=== PATIENT | male | born 1955 | race Caucasian/White ===

== ENCOUNTER 2020-09-21 11:26 | Emergency (ER) | payer MEDICARE, OTHER ==
[2020-09-21] MEDS ORDERED: Sodium Chloride 0.9% 10 ML Syringe FLUSH PRN (12:08)
--- NOTE | 2020-09-21 12:16 | EDM.PDOC ---
ED HPI GENERAL MEDICAL PROBLEM - General Chief Complaint: Neuro Symptoms/Deficits Stated Complaint: LEFT HAND CONTROL Time Seen by Provider: 09/21/20 12:11 Source of Information: Reports: Patient History Limitations: Reports: No Limitations - History of Present Illness INITIAL COMMENTS - FREE TEXT/NARRATIVE: about 1 hour ago pt developed difficulty controlling his left hand and facial numbness and numbness in the arm to the elebow. He had facial numbness on the left. He has facial deviation. He is having difficulty closing his left eye. He is able to wrinkle his forehead upward. Onset: Today, Sudden, Other ( started about 1 hour ago. ) Duration: Minutes: Location: Reports: Face Associated Symptoms: Reports: Other (pt feels like he is having trouble thinking. He has no difficulty walking. ) - Related Data Allergies Allergy/AdvReac Type Severity Reaction Status Date / Time No Known Allergies Allergy Verified 09/21/20 11:37 Home Meds: Home Meds NK [No Known Home Meds] 02/14/14 [History] Past Medical History - Past Health History Medical/Surgical History: Denies Medical/Surgical History HEENT History: Reports: None Cardiovascular History: Reports: None Respiratory History: Reports: None Gastrointestinal History: Reports: Hepatitis Other Gastrointestinal History: c - Infectious Disease History Infectious Disease History: Reports: Hepatitis C Other Infectious Disease History: had treatment 2010 - Past Surgical History HEENT Surgical History: Reports: None Social & Family History - Tobacco Use Tobacco Use Status *Q: Former Tobacco User Used Tobacco, but Quit: Yes Month/Year Tobacco Last Used: not in the past 30 years - Caffeine Use Caffeine Use: Reports: Coffee - Recreational Drug Use Recreational Drug Use: Yes Recreational Drug Type: Reports: Marijuana/Hashish ED ROS GENERAL - Review of Systems Review Of Systems: See Below Constitutional: Reports: No Symptoms HEENT: Reports: Other ( difficulty closing the left eye. ) Respiratory: Reports: No Symptoms Cardiovascular: Reports: No Symptoms Endocrine: Reports: No Symptoms GI/Abdominal: Reports: No Symptoms : Reports: No Symptoms Musculoskeletal: Reports: No Symptoms Skin: Reports: No Symptoms Neurological: Reports: Confusion, Numbness, Other ( facial deviation) Psychiatric: Reports: No Symptoms ED EXAM, NEURO - Physical Exam Exam: See Below Text/Narrative:: pt arrived about 1 hour after his symptoms started. He had difficulty coordinating his left hand and had numbness and tingluing in the arm to the elebow level. He had facial deviation numbness on the left face. difficulty closing his left eye. He was able to wrinkle the forehead well. Exam Limited By: Other (Pt felt like his thinking was slow and hewas slow to respond to certain things. He did not have a headache.) General Appearance: Alert, No Apparent Distress, Anxious, Other (pupils are equal and reactive. ) Ears: Normal TMs Nose: Normal Inspection Throat/Mouth: Normal Inspection Head Exam: Atraumatic Neck: Normal Inspection, Other (no carotid bruits) Respiratory/Chest: No Respiratory Distress Cardiovascular: Regular Rate, Rhythm, Other (normal looking ekg. sinus rhythm. ) GI/Abdominal: Soft (Male) Exam: Deferred Rectal (Males) Exam: Deferred Neurological: Alert, Oriented x 3, Other (pt had facial deviation to the rt. He has numbness on his left facial area. He is struggling to close his left eyelid. He has difficulty coordinating his left hand. He has weakness in the left hand. He has tingling to the elebow on the left. ) Back Exam: Normal Inspection Extremities: Other ( see above. ) Psychiatric: Normal Affect Course - Vital Signs Last Recorded V/S: Last Vital Signs Temp 36.5 C 09/21/20 14:00 Pulse 53 L 09/21/20 14:00 Resp 16 09/21/20 14:00 BP 132/76 09/21/20 14:00 Pulse Ox 99 09/21/20 14:00 - Orders/Labs/Meds Orders: Active Orders 24 hr Category Date Time Status Saline Lock Insert [OM.PC] Routine Oth 09/21/20 12:08 Ordered EKG 12 Lead [EK] Routine Ther 09/21/20 12:08 Ordered Labs: Laboratory Tests 09/21/20 09/21/20 09/21/20 Range/Units 12:05 12:05 12:50 WBC 4.0 L (4.5-11.0) K/uL RBC 4.88 (4.30-5.90) M/uL Hgb 15.6 H (12.0-15.0) g/dL Hct 48.2 (40.0-54.0) % MCV 99 H (80-98) fL MCH 32 H (27-31) pg MCHC 32 (32-36) % Plt Count 204 (150-400) K/uL Neut % (Auto) 57 (36-66) % Lymph % (Auto) 28 (24-44) % Carbon % (Auto) 11 H (2-6) % Eos % (Auto) 3 (2-4) % Baso % (Auto) 1 (0-1) % Sodium 139 L (140-148) mmol/L Potassium 4.5 (3.6-5.2) mmol/L Chloride 104 (100-108) mmol/L Carbon Dioxide 27 (21-32) mmol/L Anion Gap 12.5 (5.0-14.0) mmol/L BUN 18 (7-18) mg/dL Creatinine 1.2 (0.7-1.3) mg/dL Est Cr Clr Drug Dosing 54.88 mL/min Estimated GFR (MDRD) > 60 (>60) BUN/Creatinine Ratio Not Reportable Glucose 104 (74-106) mg/dL Calcium 9.0 (8.5-10.1) mg/dL Total Bilirubin 0.6 (0.2-1.0) mg/dL AST 27 (15-37) U/L ALT 34 (12-78) U/L Alkaline Phosphatase 85 (46-116) U/L Total Protein 7.6 (6.4-8.2) g/dL Albumin 3.8 (3.4-5.0) g/dL Globulin 3.8 H (2.3-3.5) g/dL Albumin/Globulin Ratio 1.0 L (1.2-2.2) Urine Color Yellow (YELLOW) Urine Appearance Clear (CLEAR) Urine pH 7.0 (5.0-8.0) Ur Specific Riley 1.010 (1.008-1.030) Urine Protein Negative (NEGATIVE) mg/dL Urine Glucose (UA) Negative (NEGATIVE) mg/dL Urine Ketones Negative (NEGATIVE) mg/dL Urine Occult Blood Negative (NEGATIVE) Urine Nitrite Negative (NEGATIVE) Urine Bilirubin Negative (NEGATIVE) Urine Urobilinogen 0.2 (0.2-1.0) EU/dL Ur Leukocyte Esterase Negative (NEGATIVE) Urine RBC Not seen (0-5) Urine WBC Not seen (0-5) Ur Epithelial Cells Not seen Amorphous Sediment Rare Urine Bacteria Not seen Urine Mucus Not seen Meds: Medications Discontinued Medications Generic Name Dose Route Start Last Admin Trade Name Freq PRN Reason Stop Dose Admin Sodium Chloride 100 mls @ 4 mls/sec 09/21/20 12:45 09/21/20 13:21 Normal Saline IV 4 mls/sec ASDIRECTED CHINTAN Administration Iopamidol 100 ml 09/21/20 12:45 09/21/20 13:21 Isovue-370 (76%) IV 100 ml . DIRECTED CHINTAN Administration Sodium Chloride 10 ml 09/21/20 12:08 Saline Flush FLUSH ASDIRECTED PRN Keep Vein Open Sodium Chloride 10 ml 09/21/20 12:37 09/21/20 13:21 Saline Flush FLUSH 09/21/20 12:38 10 ml ONETIME ONE Administration - Re-Assessments/Exams Free Text/Narrative Re-Assessment/Exam: 09/22/20 07:52 pt had normal lab work and he had a neg cat scan of the head and a cat which did not reveal any circulatory changes. He continued to have symtoms and a con sult with neuro at [facility] was done. Itwas felt he should be transfered and a Mri and consult with Neuro will be obtained. Departure - Departure Time of Disposition: 14:40 Disposition: DC/Tfer to Acute Hospital 02 Condition: Fair Clinical Impression: CVA (cerebral vascular accident) - Discharge Information Referrals: PCP,None [Primary Care Provider] - Forms: ED Department Discharge Care Plan Goals: transfer to [facility]. Sepsis Event Note (ED) - Evaluation Sepsis Screening Result: No Definite Risk - My Orders Last 24 Hours: My Active Orders 09/21/20 12:08 Saline Lock Insert [OM.PC] Routine EKG 12 Lead [EK] Routine - Assessment/Plan Last 24 Hours: My Active Orders 09/21/20 12:08 Saline Lock Insert [OM.PC] Routine EKG 12 Lead [EK] Routine
--- NOTE | 2020-09-21 12:33 | CT ---
Head wo Cont CLINICAL HISTORY: Right hemispheric deficits COMPARISON: None TECHNIQUE: Transverse scans were obtained from the base of the skull through the vertex without IV contrast on a multislice, multidetector CT scanner. Auto dosage reduction and iterative reconstruction techniques employed. FINDINGS: No focal abnormal parenchymal density is identified. There is no mass effect, hemorrhage, or extraaxial collection. The basal cisterns and sulci over the convexities are normal. The ventricles are normal for age. IMPRESSION: No acute intracranial process identified
[2020-09-21] MEDS ORDERED: Sodium Chloride 0.9% 10 ML Syringe FLUSH ONE (12:37)
[2020-09-21] MEDS ORDERED: Iopamidol 755 Mg/ML 100 ML Bottle IV SCH (12:45)
[2020-09-21] MEDS ORDERED: Sodium Chloride 0.9% 100 ML IV SCH (12:45)
--- NOTE | 2020-09-21 13:38 | CT ---
Ang Head CLINICAL HISTORY: Right hemispheric deficits. COMPARISON: None TECHNIQUE: Multiple volume rendered and MIP 3D reconstructions were generated from source images obtained on a spiral scanner before and after intravenous iodinated contrast enhancement Auto dosage reduction and iterative reconstruction techniques employed. FINDINGS: Internal carotid arteries: Show some minimal calcified plaque without significant stenosis Anterior cerebral arteries: There is an absent A1 segment on the left. There is a patent anterior communicating artery. Middle cerebral arteries: Normal course and contour Posterior cerebral arteries: Normal course and contour. 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
== END 2020-09-21 14:39 ==
LOC: JP.ED 11:26
DX: I62.9 Nontraumatic intracranial hemorrhage, unspecified (principal); Z87.891 Personal history of nicotine dependence
CPT/HCPCS: 36415; 70450; 70496; 80053; 81001; 85025; 93005; 99285; Q9967

== ENCOUNTER 2022-10-02 04:57 | Emergency (ER) | payer MEDICARE ==
[2022-10-02] MEDS ORDERED: Sodium Chloride 0.9% 75 ML IV STA (05:28)
[2022-10-02] MEDS ORDERED: Ondansetron 4 MG/2 ML SDV IVPUSH ONE (05:28)
[2022-10-02] MEDS ORDERED: Iopamidol 612 MG/ML 100 ML Bottle IV SCH (05:30)
[2022-10-02 05:42] LABS: ESTIMATED GFR 54 mL/min (>60); TROPONIN I HIGH SENSITIVITY 5.1 pg/mL (<=60.3)
[2022-10-02] MEDS ORDERED: Levofloxacin 500 MG Tab PO ONE (07:02)
[2022-10-02] MEDS ORDERED: metroNIDAZOLE 250 MG Tab PO ONE (07:02)
[2022-10-02] MEDS ORDERED: HYDROmorphone 0.5 MG/0.5 ML Syringe IVPUSH PRN (07:07)
[2022-10-02] MEDS ORDERED: Ketorolac 30 MG/ML SDV IVPUSH ONE (08:59)
== END 2022-10-02 09:30 | disposition home or self-care (01) ==
LOC: JP.ED 04:57
DX: R10.11 Right upper quadrant pain (principal); R00.1 Bradycardia, unspecified; Z79.82 Long term (current) use of aspirin; Z79.899 Other long term (current) drug therapy; Z20.822 Contact with and (suspected) exposure to COVID-19
CPT/HCPCS: 36415; 71275; 76705; 80053; 84484; 85025; 85379; 86140; 93005; 96374; 96375; 99285; A9270; J1170; J1885; J2405; J3490; Q9967; U0002

== ENCOUNTER 2024-08-18 07:25 | Day surgery (SDC) | payer MEDICARE ==
[2024-08-18] MEDS: Sodium Chloride 0.9% 1,000 ML IV SCH (08:10)
[2024-08-18] MEDS ORDERED: Propofol 200 MG/20 ML SDV ONE (08:16)
[2024-08-18] MEDS ORDERED: Midazolam 1 MG/ML 2 ML SDV ONE (08:16)
[2024-08-18] MEDS ORDERED: fentaNYL 50 MCG/ML SDV ONE (08:16)
== END 2024-08-18 10:39 | disposition home or self-care (01) ==
LOC: JP.SDS 07:25
PROVIDERS: ATTEND Surgery
DX: Z12.11 Encounter for screening for malignant neoplasm of colon (principal); K57.30 Diverticulosis of large intestine without perforation or abscess without bleeding
CPT/HCPCS: J2250; J2704; J3010; J7030